=== PATIENT | female | born 1985 | race Caucasian/White ===

== ENCOUNTER → 2020-08-27 | Outpatient (CLI) | payer BC ==
[~2020-08-27] MED LIST: PRENATAL VITAM1 EAC3 PO
== END ==
LOC: KOH-I 16:05
DX: M25.511 Pain in right shoulder (principal); M54.6 Pain in thoracic spine; M48.04 Spinal stenosis, thoracic region
CPT/HCPCS: 72070; 73030

== ENCOUNTER → 2021-09-04 | Outpatient (CLI) | payer BC | LOC: RAD 16:39 | DX: R05.9 Cough, unspecified (principal) | CPT/HCPCS: 71046 ==

== ENCOUNTER → 2021-09-16 | Outpatient (CLI) | payer BC | LOC: HEART 5 10:47 | DX: R07.89 Other chest pain (principal); R00.2 Palpitations | CPT/HCPCS: 93306 ==

== ENCOUNTER → 2022-02-13 | Outpatient (CLI) | payer BC | LOC: EXRD 14:59 | DX: R09.89 Other specified symptoms and signs involving the circulatory and respiratory systems (principal); R05.9 Cough, unspecified; R91.8 Other nonspecific abnormal finding of lung field | CPT/HCPCS: 71046 ==